=== PATIENT | female | born 1955 | race Caucasian/White ===

== ENCOUNTER 2017-05-27 21:38 | Emergency (ER) | payer MEDICAID, OTHER ==
[~2017-05-27] VITALS: Ht 162.6 cm; Wt 60.0 kg
[~2017-05-27 21:38] MED LIST: LAMO200T PO; LISI10TA3 PO; LYRI150C PO; MORP1TAB25 PO; RANI75SY5 PO; SIMV10TA PO; VENL75CA44 PO
[2017-05-27 21:55] VITALS: BP 130/94; PULSE 95; RESP 22; TEMP 98.5; O2SAT 100
[2017-05-27] MEDS ORDERED: LORazepam 2 MG/ML VIAL IV PUSH ONE (22:15)
[2017-05-27 22:18] LABS: AUTOMATED NEUTROPHIL # 4.9 TH/MM3 (1.8-7.7); BASOPHIL # 0.1 TH/MM3 (0-0.2); BASOPHIL % 0.7 % (0.0-2.0); EOSINOPHIL # 0.1 TH/MM3 (0-0.4); EOSINOPHIL % 1.1 % (0.0-4.0); HEMATOCRIT 36.1 % (35.0-46.0); HEMO FLAGS DIFF FINAL; LYMPH % 45.1 % (9.0-44.0); LYMPHOCYTE # 4.7 TH/MM3 (1.0-4.8); MEAN CELL VOLUME 88.4 FL (80.0-100.0); MEAN CORPUSCULAR HEMOGLOBIN 29.9 PG (27.0-34.0); MEAN CORPUSCULAR HGB CONC 33.8 % (32.0-36.0); MONO % 5.9 % (0.0-8.0); NEUT % 47.2 % (16.0-70.0); PLATELET COUNT 281 TH/MM3 (150-450); RED BLOOD COUNT 4.09 MIL/MM3 (4.00-5.30); RED CELL DISTRIBUTION WIDTH 12.7 % (11.6-17.2); WHITE BLOOD COUNT 10.5 TH/MM3 (4.0-11.0)
[2017-05-27 22:43] LABS: ALT (GPT) 44 U/L (10-53)
[2017-05-27 22:45] LABS: ALKALINE PHOSPHATASE 128 U/L (45-117); TOTAL BILIRUBIN ADULT 0.4 MG/DL (0.2-1.0)
[2017-05-27] MEDS ORDERED: ACETAMINOPHEN/HYDROcodone 325 MG/5 MG TAB PO ONE (22:45)
[2017-05-27 22:53] LABS: ANION GAP 9 MEQ/L (5-15); AST (GOT) 44 U/L (15-37); BICARBONATE 26.7 MEQ/L (21.0-32.0); BLOOD UREA NITROGEN 10 MG/DL (7-18); CHLORIDE 103 MEQ/L (98-107); GLOMERULAR FILTRATION RATE 69 ML/MIN (>89); POTASSIUM 3.8 MEQ/L (3.5-5.1); SODIUM (NA) 139 MEQ/L (136-145)
--- NOTE | 2017-05-27 22:54 | RADRPT ---
EXAM DATE/TIME: 05/27/2017 22:38 [place] COMPARISON: No previous studies available for comparison. INDICATIONS : Altered mental status. RADIATION DOSE: 56.35 CTDIvol (mGy) MEDICAL HISTORY : Hypertension. Cardiovascular disease SURGICAL HISTORY : None. ENCOUNTER: Initial ACUITY: 1 day PAIN SCALE: 0/10 LOCATION: cranial TECHNIQUE: Multiple contiguous axial images were obtained of the head. Using automated exposure control and adj ustment of the mA and/or kV according to patient size, radiation dose was kept as low as reasonably a chievable to obtain optimal diagnostic quality images. DICOM format image data is available electro nically for review and comparison. FINDINGS: CEREBRUM: The ventricles are normal for age. No evidence of midline shift, mass lesion, hemorrhage or acute in farction. No extra-axial fluid collections are seen. POSTERIOR FOSSA: The cerebellum and brainstem are intact. The 4th ventricle is midline. The cerebellopontine angle i s unremarkable. EXTRACRANIAL: The visualized portion of the orbits is intact. The nasal septum is deviated to the right. SKULL: The calvaria is intact. No evidence of skull fracture. CONCLUSION: Normal examination. Dylon Vences MD on May 27, 2017 at 22:52 Board Certified Radiologist. This report was verified electronically.
[2017-05-27 23:03] LABS: ACETAMINOPHEN LESS THAN 2.0 MCG/ML (10.0-30.0); ALCOHOL LESS THAN 3 MG/DL (0-5)
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
[2017-05-28 02:13] VITALS: BP 121/68; PULSE 65; RESP 16; TEMP 97.9; O2SAT 96
[2017-05-28 06:21] VITALS: BP 132/71; PULSE 81; RESP 16; TEMP 98.5; O2SAT 99
[2017-05-28 11:00] VITALS: BP 150/67; PULSE 68; RESP 18
[2017-05-28 12:33] VITALS: BP 150/67; PULSE 68; RESP 18
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
--- NOTE | 2017-05-28 13:31 | PD ---
Physical Exam Date Seen by Provider: May 28, 2017 Time Seen by Provider: 13:29 Narrative 61-year-old female that presents to the ED for evaluation of psychiatric eval. I actually saw this patient yesterday and medically clear her. She was seen by psychiatrist would deem her Ruffin act lifted. Patient agrees with follow-up outpatient. She denies any other medical issues other than her chronic medical problems. She was told that she needs to follow with her primary care doctor for MRIs of her chronic complaints. Data Data Last Documented VS Vital Signs Date Time Temp Pulse Resp B/P (MAP) Pulse Ox O2 Delivery O2 Flow Rate FiO2 05/28/17 12:53 05/28/17 12:33 68 18 Room Air 05/28/17 06:21 98.5 99 Orders Orders Complete Blood Count With Diff (05/27/17 22:02) Comprehensive Metabolic Panel (05/27/17 22:02) Psych Screen (05/27/17 22:02) Drug Screen, Random Urine (05/27/17 22:02) Alcohol (Ethanol) (05/27/17 22:02) Salicylates (Aspirin) (05/27/17 22:02) Tylenol (Acetaminophen) (05/27/17 22:02) Lorazepam Inj (Ativan Inj) (05/27/17 22:15) Acetamin-Hydrocod 325-5 Mg ([place] 5-325 (05/27/17 22:45) Ct Brain W/O Iv Contrast(Rout) (05/27/17 ) Diet Regular Basic (05/28/17 Breakfast) Diet Regular Basic (05/28/17 Lunch) Ed Discharge Order (05/28/17 13:11) Labs Laboratory Tests Test 05/27/17 21:50 05/28/17 02:12 White Blood Count 10.5 TH/MM3 Red Blood Count 4.09 MIL/MM3 Hemoglobin 12.2 GM/DL Hematocrit 36.1 % Mean Corpuscular Volume 88.4 FL Mean Corpuscular Hemoglobin 29.9 PG Mean Corpuscular Hemoglobin Concent 33.8 % Red Cell Distribution Width 12.7 % Platelet Count 281 TH/MM3 Mean Platelet Volume 7.6 FL Neutrophils (%) (Auto) 47.2 % Lymphocytes (%) (Auto) 45.1 % Monocytes (%) (Auto) 5.9 % Eosinophils (%) (Auto) 1.1 % Basophils (%) (Auto) 0.7 % Neutrophils # (Auto) 4.9 TH/MM3 Lymphocytes # (Auto) 4.7 TH/MM3 Monocytes # (Auto) 0.6 TH/MM3 Eosinophils # (Auto) 0.1 TH/MM3 Basophils # (Auto) 0.1 TH/MM3 CBC Comment DIFF FINAL Differential Comment Blood Urea Nitrogen 10 MG/DL Creatinine 0.84 MG/DL Random Glucose 88 MG/DL Total Protein 8.3 GM/DL Albumin 4.3 GM/DL Calcium Level 9.1 MG/DL Alkaline Phosphatase 128 U/L Aspartate Amino Transf (AST/SGOT) 44 U/L Alanine Aminotransferase (ALT/SGPT) 44 U/L Total Bilirubin 0.4 MG/DL Sodium Level 139 MEQ/L Potassium Level 3.8 MEQ/L Chloride Level 103 MEQ/L Carbon Dioxide Level 26.7 MEQ/L Anion Gap 9 MEQ/L Estimat Glomerular Filtration Rate 69 ML/MIN Salicylates Level LESS THAN 1.7 MG/DL Acetaminophen Level LESS THAN 2.0 MCG/ML Ethyl Alcohol Level LESS THAN 3 MG/DL Urine Opiates Screen POS Urine Barbiturates Screen NEG Urine Amphetamines Screen NEG Urine Benzodiazepines Screen NEG Urine Cocaine Screen NEG Urine Cannabinoids Screen NEG MDM Medical Record Reviewed: Yes Supervised Visit with WILLIAM: No Differential Diagnosis Depression versus suicidal ideation versus anxiety versus adjustment disorder versus mood disorder versus bipolar disorder versus schizophrenia versus paranoid disorder versus psychosis versus substance abuse versus alcohol abuse versus alcohol induced psychosis versus homicidality addition versus cutting versus personality disorder Narrative Course 61-year-old female that presents to the ED for evaluation of psychiatric eval. I actually saw this patient yesterday and medically clear her. She was seen by psychiatrist would deem her Ruffin act lifted. Patient agrees with follow-up outpatient. She denies any other medical issues other than her chronic medical problems. She was told that she needs to follow with her primary care doctor for MRIs of her chronic complaints. Follow-up outpatient for further versus gastric evaluation and possible counseling to help her with her anxiety and stressors. See ED if worsening symptoms. Diagnosis Primary Impression: Adjustment disorder with mixed disturbance of emotions and conduct Patient Instructions: General Instructions, Mood Disorders (ED), Medical Clearance for Psychiatric Care (ED) Departure Forms: Tests/Procedures Additional Instruction: DX: Adjustment Disorder Please return to ED if symptoms worsen. Disposition: 01 DISCHARGE HOME Condition: Stable Kush Pressley May 28, 2017 13:31
== END 2017-05-28 14:14 | disposition home or self-care (01) ==
LOC: NEPD 21:38 → NEPJ 05-28 14:14
DX: F43.25 Adjustment disorder with mixed disturbance of emotions and conduct (principal); I10 Essential (primary) hypertension; K21.9 Gastro-esophageal reflux disease without esophagitis; M79.7 Fibromyalgia; M19.90 Unspecified osteoarthritis, unspecified site; V89.2XXA Person injured in unspecified motor-vehicle accident, traffic, initial encounter
CPT/HCPCS: 70450; 80053; 80307; 85025; 96374; 99285; J2060

== ENCOUNTER 2017-11-20 15:19 | Emergency (ER) | payer MEDICAID, OTHER ==
[~2017-11-20] VITALS: Ht 162.6 cm; Wt 67.0 kg
[~2017-11-20 15:19] MED LIST changes: +CYCL5TAB PO
[2017-11-20 15:31] VITALS: BP 142/61; PULSE 86; RESP 16; TEMP 99.3; O2SAT 97
--- NOTE | 2017-11-20 15:36 | PD ---
HPI Chief Complaint: Fall Time Seen by Provider: 15:34 Travel History International Travel<30 days: No Contact w/Intl Traveler<30days: No Traveled to known affect area: No History of Present Illness HPI 62y female presents to the ED for evaluation of headache, left cormier, left shoulder, right knee pain that started after fall that occurred just prior to arrival. Patient states that she was walking quickly on carpet when her foot caught the carpet and fell hitting her face against the wall and then onto the ground. Patient says she has a history of a right "collapsed foot" so she has difficulty with walking normally. Patient says she has moderate to severe pain to the frontal aspect of her head and pain over her right brow. She denies any loss consciousness, blurred vision, neck pain or back pain. She does not take blood thinners. Of note, patient says that she does have chronic neck problems but again denies any pain at this moment. Patient says the left cormier is the most painful directly over the tibia, worse with palpation and walking. Left shoulder is tender to palpation directly over the anterior aspect of the shoulder. She does have full range of motion of her left shoulder. Denies numbness or tingling of extremities. Denies weakness. She is a history depression. She has no other complaints today. [facility] Past Medical History Cancer: No Cardiovascular Problems: Yes (HX OF ANGINA) Diabetes: No Endocrine: No Gastrointestinal Disorders: Yes (ACID REFLUX) Genitourinary: No Hepatitis: No Hiatal Hernia: No Hypertension: Yes Immune Disorder: No Musculoskeletal: Yes (OSTEOARTHRITIS, BACK PROBLEMS, DIFFICULTY WALKING, FIBROMYALGIA) Neurologic: Yes (MIGRAINES, HEAD INJURY 1982) Psychiatric: No Reproductive: No Respiratory: No Thyroid Disease: No Past Surgical History Abdominal Surgery: No AICD: No Cardiac Surgery: No Ear Surgery: No Endocrine Surgery: No Eye Surgery: No Genitourinary Surgery: No Gynecologic Surgery: Yes (CYST ON OVARY REMOVED, BENIGN TUMOR IN UTERUS REMOVED 1997) Joint Replacement: No Oral Surgery: Yes (TONSILLECTOMY) Pacemaker: No Thoracic Surgery: No Other Surgery: Yes Social History Alcohol Use: Yes Tobacco Use: Yes Substance Use: No Allergies-Medications (Allergen,Severity, Reaction): Coded Allergies: No Known Allergies (Unverified Allergy, Unknown, 11/20/17) Reported Meds & Prescriptions Reported Meds & Active Scripts Active Lisinopril 10 Mg Tab 10 Mg PO DAILY Lyrica (Pregabalin) 150 Mg Cap 150 Mg PO TID Venlafaxine ER 24 HR (Venlafaxine HCl) 75 Mg Cap 75 Mg PO DAILY Simvastatin 10 Mg Tab 10 Mg PO DAILY Lamotrigine 200 Mg Tab 200 Mg PO DAILY Reported Wellbutrin SR 12 HR (Bupropion HCl) 100 Mg Tab 100 Mg PO Q12HR Embeda (Morphine-Naltrexone ER) 50-2 Mg Caper 1 Cap PO BID Morphine ER (Morphine Sulfate) 30 Mg Tab 30 Mg PO BID Review of Systems Except as stated in HPI: all other systems reviewed are Neg Physical Exam Narrative GENERAL: Well developed, well-nourished no apparent distress. Severe antalgic gait, normal per patient SKIN: Focused skin assessment warm/dry. HEAD: Atraumatic. Normocephalic. EYES: Pupils equal and round. No scleral icterus. No injection or drainage. Mild tenderness palpation over the right brow without crepitus or deformities. Ecchymosis over the right forehead ENT: No nasal bleeding or discharge. Mucous membranes pink and moist. NECK: Trachea midline. No JVD. No midline tenderness CARDIOVASCULAR: Regular rate and rhythm. No murmur appreciated. RESPIRATORY: No accessory muscle use. Clear to auscultation. Breath sounds equal bilaterally. MUSCULOSKELETAL: No obvious deformities. No clubbing. No cyanosis. No edema. Left shoulder-TTP over glenohumeral joint, no tenderness palpation of the upper deltoid region. Neurovascularly intact. Right knee-mild edema to the medial aspect of the knee with tenderness palpation of the joint line and patella. Full range of motion without clicking or popping. Left cormier-tenderness palpation to the anterior mid cormier without deformities, contusions, abrasions. No areas of ecchymosis or edema. BACK: No CVA tenderness. No rash. No point tenderness on palpation of the spine. NEUROLOGICAL: Awake and alert. Cranial nerves II through XII intact. Motor and sensory grossly within normal limits. Five out of 5 muscle strength in all muscle groups. Normal speech. PSYCHIATRIC: Appropriate mood and affect; insight and judgment normal. Slightly anxious appearing Data Data Last Documented VS Vital Signs Date Time Temp Pulse Resp B/P (MAP) Pulse Ox O2 Delivery O2 Flow Rate FiO2 11/20/17 15:31 99.3 86 16 142/61 (88) [address] Brain W/O Iv Contrast(Rout) (11/20/17 ) Ct Cerv Spine W/O Contrast (11/20/17 ) Ct Facial Bones W/O Iv Cont (11/20/17 ) Shoulder, Complete (>2vws) (11/20/17 ) Tibia/Fibula (Ap/Lat) (11/20/17 ) Knee, Complete (4vws) (11/20/17 ) Ed Discharge Order (11/20/17 17:21) [facility] Medical Decision Making Medical Screen Exam Complete: Yes Emergency Medical Condition: Yes Differential Diagnosis Head contusion, facial contusion, nasal fracture, shoulder fracture, leg fracture, leg contusion Narrative Course 62y female presents to the ED for evaluation of headache, left cormier, left shoulder, right knee pain that started after fall that occurred just prior to arrival. Patient states that she was walking quickly on carpet when her foot caught the carpet and fell hitting her face against the wall and then onto the ground. Patient says she has a history of a right "collapsed foot" so she has difficulty with walking normally. Patient says she has moderate to severe pain to the frontal aspect of her head and pain over her right brow. She denies any loss consciousness, blurred vision, neck pain or back pain. She does not take blood thinners. Of note, patient says that she does have chronic neck problems but again denies any pain at this moment. Patient says the left cormier is the most painful directly over the tibia, worse with palpation and walking. Left shoulder is tender to palpation directly over the anterior aspect of the shoulder. She does have full range of motion of her left shoulder. Denies numbness or tingling of extremities. Denies weakness. She is a history depression. She has no other complaints today. Vital signs are stable. Reviewed E force. It appears that patient takes morphine and Embeda and recently had a renewal of this prescription from her pain management doctor. Last Impressions Tibia/Fibula X-Ray 11/20/17 0000 Signed Impressions: Service Date/Time: Monday, November 20, 2017 16:03 - CONCLUSION: No acute bony injury Andrey Warner MD Shoulder X-Ray 11/20/17 0000 Signed Impressions: Service Date/Time: Monday, November 20, 2017 16:03 - CONCLUSION: Severe arthritic deformity of the left shoulder. No definite acute bony injury Andrey Warner MD Maxillofacial CT 11/20/17 0000 Signed Impressions: Service Date/Time: Monday, November 20, 2017 16:21 - CONCLUSION: Minimal fragmentation of the tip of the nasal bone of undetermined age. Otherwise negative Andrey Warner MD Knee X-Ray 11/20/17 0000 Signed Impressions: Service Date/Time: Monday, November 20, 2017 16:03 - CONCLUSION: Mild degenerative changes. No acute bony injury Andrey Warner MD Head CT 11/20/17 0000 Signed Impressions: Service Date/Time: Monday, November 20, 2017 16:21 - CONCLUSION: Normal examination. Andrey Warner MD Cervical Spine CT 11/20/17 0000 Signed Impressions: Service Date/Time: Monday, November 20, 2017 16:21 - CONCLUSION: 1. No acute fracture. Degenerative anterolisthesis of C3 on C4 on C5. Partial fusion at C5-6. No significant AP canal stenosis. Rome Smith MD Maxillofacial CT demonstrates some fragmentation of her nose of undetermined age. Patient does not complain any pain along her nose. I suspect this is an older injury. Based off of history and physical today, I do not suspect any acute bony process today. Patient is discharged and advised to follow-up with her primary care physician. Advised to return for worsening or persistent symptoms. Diagnosis Primary Impression: Shoulder contusion Qualified Codes: S40.012A - Contusion of left shoulder, initial encounter Additional Impressions: Head contusion Qualified Codes: S00.83XA - Contusion of other part of head, initial encounter Contusion of leg Qualified Codes: S80.12XA - Contusion of left lower leg, initial encounter Knee contusion Qualified Codes: S80.01XA - Contusion of right knee, initial encounter Fall from standing Qualified Codes: W19.XXXA - Unspecified fall, initial encounter Referrals: Primary Care Physician Additional Instructions: Use ice or heat for symptom relief. If no contraindications, you may use Tylenol or Motrin per package instructions for your pain. Elevate the joint above the heart to reduce swelling. You may use compression with Adan wrap or similar to reduce swelling. If symptoms persist or worsen, return to the emergency department. Follow up with your primary care physician within 2 days. Disposition: 01 DISCHARGE HOME Condition: Stable Justice,Yesenia PA November 20, 2017 15:36
[2017-11-20] MEDS ORDERED: MORP1CAP81 PO (16:05)
[2017-11-20] MEDS ORDERED: BUPR100CR PO (16:05)
[2017-11-20] MEDS ORDERED: VENL25TA PO (16:05)
--- NOTE | 2017-11-20 16:49 | RADRPT ---
EXAM DATE/TIME: 11/20/2017 16:21 [facility] COMPARISON: No previous studies available for comparison. INDICATIONS : Trauma. Fall. Cephalgia. RADIATION DOSE: 57.66 CTDIvol (mGy) MEDICAL HISTORY : Hypertension. SURGICAL HISTORY : None. ENCOUNTER: Initial ACUITY: 1 day PAIN SCALE: 10/10 LOCATION: cranial TECHNIQUE: Multiple contiguous axial images were obtained of the head. Using automated exposure control and adj ustment of the mA and/or kV according to patient size, radiation dose was kept as low as reasonably a chievable to obtain optimal diagnostic quality images. DICOM format image data is available electro nically for review and comparison. FINDINGS: CEREBRUM: The ventricles are normal for age. No evidence of midline shift, mass lesion, hemorrhage or acute in farction. No extra-axial fluid collections are seen. POSTERIOR FOSSA: The cerebellum and brainstem are intact. The 4th ventricle is midline. The cerebellopontine angle i s unremarkable. EXTRACRANIAL: The visualized portion of the orbits is intact. SKULL: The calvaria is intact. No evidence of skull fracture. CONCLUSION: Normal examination. Andrey Warner MD on November 20, 2017 at 16:45 Board Certified Radiologist. This report was verified electronically.
--- NOTE | 2017-11-20 16:52 | RADRPT ---
EXAM DATE/TIME: 11/20/2017 16:21 [facility] COMPARISON: No previous studies available for comparison. INDICATIONS : Trauma. Fall. Cephalgia. RADIATION DOSE: 25.40 CTDIvol (mGy) MEDICAL HISTORY : Hypertension. SURGICAL HISTORY : None. ENCOUNTER: Initial ACUITY: 1 day PAIN SCORE: 3/10 LOCATION: facial TECHNIQUE: Volumetric scanning of the facial bones was performed. Using automated exposure control and adjustme nt of the mA and/or kV according to patient size, radiation dose was kept as low as reasonably achiev able to obtain optimal diagnostic quality images. DICOM format image data is available electronicall y for review and comparison. FINDINGS: ORBITS: The orbital and infraorbital osseous structures are intact. The retroconal structures have a normal configuration. No radiopaque foreign bodies are seen. NASAL BONE: Minimal fragmentation of the tip of the nasal bone. Correlate with location of trauma. ZYGOMATIC ARCHES: Symmetric without evidence of fracture. SINUSES: The maxillary, ethmoid and frontal sinuses are intact. No air-fluid levels seen. NASAL CAVITY: The nasal septum is intact and midline. The lacrimal ducts are intact. SOFT TISSUES: No radiopaque foreign bodies seen. No soft-tissue swelling is seen. INTRACRANIAL: No intracranial air seen. CRIBIFORM PLATE: Grossly intact. CONCLUSION: Minimal fragmentation of the tip of the nasal bone of undetermined age. Otherwise negative Andrey Warner MD on November 20, 2017 at 16:47 Board Certified Radiologist. This report was verified electronically.
--- NOTE | 2017-11-20 17:01 | RADRPT ---
EXAM DATE/TIME: 11/20/2017 16:21 [facility] COMPARISON: No previous studies available for comparison. INDICATIONS : Trauma. Fall. Cephalgia. RADIATION DOSE: 22.40 CTDIvol (mGy) MEDICAL HISTORY : Hypertension. SURGICAL HISTORY : None. ENCOUNTER: Initial ACUITY: 1 day PAIN SCALE: 6/10 LOCATION: neck TECHNIQUE: Volumetric scanning of the cervical spine was performed. Multiplanar reconstructions in the sagittal, coronal and oblique axial planes were performed. Using automated exposure control and adjustment o f the mA and/or kV according to patient size, radiation dose was kept as low as reasonably achievable to obtain optimal diagnostic quality images. DICOM format image data is available electronically f or review and comparison. FINDINGS: There is a grade 1 anterolisthesis of C3 on C4 and C4 on C5 which is likely degenerative. Partial fus ion across C5-6. No acute fracture or prevertebral soft tissue swelling. Focal reversal of normal cer vical lordosis between C4 and C7. CONCLUSION: 1. No acute fracture. Degenerative anterolisthesis of C3 on C4 on C5. Partial fusion at C5-6. No sign ificant AP canal stenosis. Rome Smith MD on November 20, 2017 at 16:56 Board Certified Radiologist. This report was verified electronically.
--- NOTE | 2017-11-20 17:03 | RADRPT ---
EXAM DATE/TIME: 11/20/2017 16:03 [facility] COMPARISON: SHOULDER LEFT LTD (2VWS), February 09, 2014, 1:16. INDICATIONS : Left shoulder pain post fall. MEDICAL HISTORY : Hypertension. Cardiovascular disease SURGICAL HISTORY : None. ENCOUNTER: Initial ACUITY: 2 days PAIN SCORE: 4/10 LOCATION: Left upper extremity FINDINGS: There is severe degenerative arthritic change in the glenohumeral joint. There is no definite evidenc e of fracture or dislocation. The adjacent clavicle and ribs appear intact. CONCLUSION: Severe arthritic deformity of the left shoulder. No definite acute bony injury Andrey Warner MD on November 20, 2017 at 16:59 Board Certified Radiologist. This report was verified electronically.
--- NOTE | 2017-11-20 17:10 | RADRPT ---
EXAM DATE/TIME: 11/20/2017 16:03 [facility] COMPARISON: No previous studies available for comparison. INDICATIONS : Right knee pain post fall. MEDICAL HISTORY : Hypertension. Cardiovascular disease SURGICAL HISTORY : None. ENCOUNTER: Initial ACUITY: 2 days PAIN SCORE: 4/10 LOCATION: Right knee FINDINGS: There is no evidence of fracture dislocation. There is mild degenerative change with tricompartmental osteophyte formation. Possible small suprapatellar effusion. CONCLUSION: Mild degenerative changes. No acute bony injury Andrey Warner MD on November 20, 2017 at 17:07 Board Certified Radiologist. This report was verified electronically.
--- NOTE | 2017-11-20 17:10 | RADRPT ---
EXAM DATE/TIME: 11/20/2017 16:03 [facility] COMPARISON: No previous studies available for comparison. INDICATIONS : Left proximal tibia/fibula pain post fall. MEDICAL HISTORY : Hypertension. Cardiovascular disease SURGICAL HISTORY : None. ENCOUNTER: Initial ACUITY: 2 days PAIN SCORE: 7/10 LOCATION: Left tibia/fibula FINDINGS: Total knee arthroplasty is present. Hardware appears intact. The tibia and fibula are otherwise unrem arkable with no evidence of fracture or other acute injury. CONCLUSION: No acute bony injury Andrey Warner MD on November 20, 2017 at 17:01 Board Certified Radiologist. This report was verified electronically.
== END 2017-11-20 17:27 | disposition home or self-care (01) ==
LOC: PHED 15:19 → PHEFT 17:27
DX: S40.012A Contusion of left shoulder, initial encounter (principal); S00.83XA Contusion of other part of head, initial encounter; S80.12XA Contusion of left lower leg, initial encounter; S80.01XA Contusion of right knee, initial encounter; W01.198A Fall on same level from slipping, tripping and stumbling with subsequent striking against other object, initial encounter; F32.9 Major depressive disorder, single episode, unspecified; I10 Essential (primary) hypertension; M19.90 Unspecified osteoarthritis, unspecified site; Z72.0 Tobacco use
CPT/HCPCS: 70450; 70486; 72125; 73030; 73564; 73590